=== PATIENT | female | born 1960 | race Caucasian/White ===

== ENCOUNTER 2019-01-30 10:35 | Emergency (ER) | payer BC ==
[2019-01-30 10:41] VITALS: RESP 18; TEMP 98
[2019-01-30] MEDS ORDERED: ACET/COD 300 MG/30 MG STARTER PACK 6 TAB BTL PO STA (11:06)
--- NOTE | 2019-01-30 11:07 | ED ---
Upper Extremity HPI - General Chief Complaint: Extremity Injury, Upper Stated Complaint: left hand/ring finger injury Time Seen by Provider: 01/30/19 10:42 Source: patient, RN notes reviewed Mode of arrival: ambulatory Limitations: no limitations - History of Present Illness Initial Comments: 58-year-old female presented emergency department with chief complaint of fall, left hand pain. Patient states that she slipped on the ice going on her status. She can't over left hand. She has pain over her fifth metacarpal region. She states it looks deformed. Denies any paresthesias no head injury no loss consciousness no other injuries noted. Patient is right handed - Related Data Allergies Allergy/AdvReac Type Severity Reaction Status Date / Time No Known Allergies Allergy Verified 01/30/19 10:41 Review of Systems ROS Statement: Those systems with pertinent positive or pertinent negative responses have been documented in the HPI. ROS Other: All systems not noted in ROS Statement are negative. Past Medical History Past Medical History: No Reported History, Deep Vein Thrombosis (DVT) History of Any Multi-Drug Resistant Organisms: None Reported Past Surgical History: Section, Tubal Ligation Past Psychological History: No Psychological Hx Reported Smoking Status: Former smoker Past Alcohol Use History: Occasional Past Drug Use History: None Reported General Exam Limitations: no limitations General appearance: alert, in no apparent distress Head exam: Present: atraumatic, normocephalic, normal inspection Respiratory exam: Present: normal lung sounds bilaterally. Absent: respiratory distress, wheezes, rales, rhonchi, stridor Cardiovascular Exam: Present: regular rate, normal rhythm, normal heart sounds. Absent: systolic murmur, diastolic murmur, rubs, gallop, clicks Extremities exam: Present: other (Left hand there is tenderness over the fourth metacarpal region, fourth MCP region with mild depression noted neurovascular intact no wrist tenderness) Course Vital Signs 01/30/19 10:38 Temperature 98.0 F Pulse Rate 88 Respiratory 18 Rate Blood Pressure 134/78 O2 Sat by Pulse 99 Oximetry Procedures - Orthopedic Splinting/Casting Injury #1 Side: left Upper Extremity Injury Location: short arm, hand Upper Extremity Immobilizer: sugar tong splint, synthetic pre-padded splint Medical Decision Making - Medical Decision Making X-ray shows fracture of the fourth metacarpal, patient was splinted and will follow-up with orthopedics. Disposition Clinical Impression: Fracture of fourth metacarpal bone of left hand Disposition: HOME SELF-CARE Condition: Stable Instructions (If sedation given, give patient instructions): Hand Fracture (ED) Additional Instructions: Please return to the Emergency Department if symptoms worsen or any other concerns. Is patient prescribed a controlled substance at d/c from ED?: No Referrals: Surekha Amaya MD [Primary Care Provider] - 1-2 days Fernie Monzon DO [Doctor of Osteopathic Medicine] - 1-2 days Time of Disposition: 11:07
--- NOTE | 2019-01-30 11:19 | XR ---
EXAMINATION TYPE: XR hand complete LT DATE OF EXAM: 01/30/2019 CLINICAL HISTORY: pain TECHNIQUE: Frontal, lateral and oblique images of the left hand are obtained. COMPARISON: None. FINDINGS: Oblique fracture midportion left fourth metacarpal. Displacement noted at 2.4 mm. The joint spaces appear within normal limits. The overlying soft tissue appears unremarkable. IMPRESSION: Oblique fracture midportion left fourth metacarpal. Displacement noted at 2.4 mm.
[2019-01-30 11:25] VITALS: BP 130/80; PULSE 86
== END 2019-01-30 11:15 | disposition home or self-care (01) ==
LOC: EC 10:35
DX: S62.305A Unspecified fracture of fourth metacarpal bone, left hand, initial encounter for closed fracture (principal); Z87.891 Personal history of nicotine dependence; W00.0XXA Fall on same level due to ice and snow, initial encounter; Y92.009 Unspecified place in unspecified non-institutional (private) residence as the place of occurrence of the external cause
CPT/HCPCS: 29125; 99283